=== PATIENT | female | born 1950 ===

== ENCOUNTER 2017-10-01 08:52 | Emergency (ER) | payer MEDICARE, MEDICAID ==
[2017-10-01 08:52] VITALS: BMI 32.8
[2017-10-01 08:58] VITALS: TEMP 98.2
--- NOTE | 2017-10-01 09:42 | ED PDOC ---
Arrival/HPI - General Chief Complaint: Lower Extremity Problem/Injury Time Seen by Provider: 10/01/17 08:53 Historian: EMS EM Caveat: Acuity of Condition - History of Present Illness Narrative History of Present Illness (Text): 67 y/o F w/ h/o HIV, HLD, DM presenting with moderate persistent left leg pain ongoing for the last 5 days. She describes the pain as shooting, sharp and continous originating from the thigh radiating downwards towards the leg. She reports worsening of the pain when lying down and has attempted to self- medicate with Tylenol and Motrin with little resolution in symptoms. She denies any recent trauma or falls. She reports recent visit to [facility] where she was given analgesics and discharged. She denies previous history of similar symptoms. She reports recent change in her HIV medication per her PCP. She reports a recent decrease in urinary stream and maldorous odor, but denies hematuria or dysuria. PCP: Dr. Raymundo Cuadra Time/Duration: Other (5 Days) Quality: Aching (Sharp, stabbing & shooting), Other Severity Level: 10 Context: Sitting Past Medical History - Provider Review Nursing Documentation Reviewed: Yes - Travel History Have you recently traveled outside [place] w/in the past 3 mons?: No - Infectious Disease Hx of Infectious Diseases: None - Reproductive Menopause: Yes - Cardiac Hx Cardiac Disorders: No - Pulmonary Hx Respiratory Disorders: No - Neurological Hx Neurological Disorder: No - HEENT Hx HEENT Disorder: Yes Hx Cataracts: Yes - Renal Hx Renal Disorder: No - Endocrine/Metabolic Hx Endocrine Disorders: Yes Hx Diabetes Mellitus Type 2: Yes - Hematological/Oncological Hx Blood Disorders: Yes Hx Cancer: Yes (breast) - Integumentary Hx Dermatological Disorder: No - Musculoskeletal/Rheumatological Hx Musculoskeletal Disorders: No - Gastrointestinal Hx Gastrointestinal Disorders: No - Genitourinary/Gynecological Hx Genitourinary Disorders: No - Psychiatric Hx Psychophysiologic Disorder: No Hx Substance Use: No - Surgical History Hx Appendectomy: Yes Hx Cholecystectomy: Yes - Anesthesia Hx Anesthesia: Yes Hx Anesthesia Reactions: No Family/Social History - Physician Review Nursing Documentation Reviewed: Yes Family/Social History: No Known Family HX Smoking Status: Never Smoked Hx Alcohol Use: No Hx Substance Use: No Allergies/Home Meds Allergies/Adverse Reactions: Allergies No Known Allergies Allergy (Verified 10/01/17 08:58) Home Medications: Home Meds Medication Instructions Recorded Confirmed Efavirenz/Emtricitabine/Teno 1 tab PO DAILY 09/01/17 09/29/17 [Atripla 600 MG-200 MG-300 MG] Insulin Glargine, Recombina 40 units SQ DAILY 09/01/17 09/29/17 [Lantus] Rosuvastatin Calcium [Crestor] 10 mg PO DAILY 09/01/17 09/29/17 SITagliptin [Januvia] 100 mg PO DAILY 09/01/17 09/29/17 metFORMIN [glucOPHAGE] 500 mg PO BID 09/01/17 09/29/17 Review of Systems - Physician Review All systems were reviewed & negative as marked: Yes - Review of Systems Musculoskeletal: Arthralgias, Myalgias. absent: Neck Pain Physical Exam Vital Signs Reviewed: Yes Vital Signs Temp Pulse Resp BP Pulse Ox 10/01/17 11:58 70 10/01/17 11:54 70 18 136/72 99 10/01/17 11:34 68 17 135/70 98 10/01/17 08:54 98.2 F 72 18 139/68 100 Mental Status: Positive for: Alert and Oriented X 3 - Systems Exam Head: Present: Atraumatic, Normocephalic Pupils: Present: PERRL Extroacular Muscles: Present: EOMI Mouth: Present: Moist Mucous Membranes Neck: Present: Normal Range of Motion. No: MIDLINE TENDERNESS, Paraspinal Tenderness Respiratory/Chest: Present: Clear to Auscultation, Good Air Exchange. No: Respiratory Distress, Accessory Muscle Use Cardiovascular: Present: Regular Rate and Rhythm, Normal S1, S2, Peripheal Pulses Present Abdomen: Present: Normal Bowel Sounds. No: Tenderness, Distention, Peritoneal Signs Back: Present: Pain with Leg Raise. No: Midline Tenderness, Paraspinal Tenderness Lower Extremity: Present: NORMAL PULSES, Tenderness, Neurovascularly Intact. No : Edema, Cyanosis, Swelling Neurological: Present: GCS=15, CN II-XII Intact, Speech Normal, Motor Func Grossly Intact, Normal Sensory Function, Gait Normal Skin: Present: Warm, Dry, Normal Color Psychiatric: Present: Alert, Oriented x 3, Normal Insight, Normal Concentration Medical Decision Making ED Course and Treatment: Impression 67 y/o F presenting w/ 5 day h/o leg pain worrisome for sciatica Give the patient is experiencing shooting pain originating from the gluteal region down the leg most likely neuropathic in nature. She denies recent back injury or injury to the lower extremity or any trauma, making occult fracture or tendinous rupture less likely. Patient will have imaging to rule out fracture of femur and will be treated with analgesics. She most likely will be monitored for any improvement in symptoms and will most likely be referred to neurology on an outpatient basis. Differential includes but is not limited to: Sciatica Patellofemoral syndrome Osteoarthritis Lumbago Plan -XR femur -Toradol -Lidoderm Patch -Tylenol -Ambulation challenge -Frequent reassessments to determine any changes in clinical impression Progress Notes 10:30 XR negative with patient reassessed and reports improvement in symptoms. UA positive for leukocyte esterase & nitrites, however shows few bacteria. She will not be treated for UTI at this time. Patient's niece at the bedside and will assist patient home. Scripts for lidoderm patches provided. Patient ambulatory with minimal assistance. She is stable for discharge. - Lab Interpretations Lab Results: Lab Results 10/01/17 10:12: Urine Color Yellow, Urine Appearance Clear, Urine pH 7.0, Ur Specific [place] 1.015, Urine Protein Negative, Urine Glucose (UA) 500 H, Urine Ketones Trace H, Urine Blood Trace-intact H, Urine Nitrate Positive H, Urine Bilirubin Negative, Urine Urobilinogen 0.2, Ur Leukocyte Esterase Trace H, Urine RBC 2 - 5, Urine WBC 5 - 10, Ur Epithelial Cells 3 - 4, Urine Bacteria Few - RAD Interpretation Radiology Orders: 10/01/17 10:32 Femur Left [FEMUR MIN 2 VIEWS LT] [RAD] Stat - Medication Orders Current Medication Orders: Discontinued Medications Acetaminophen (Tylenol 325mg Tab) 975 mg PO STAT STA Stop: 10/01/17 09:26 Last Admin: 10/01/17 09:46 Dose: 975 mg Ketorolac Tromethamine (Toradol) 60 mg IM STAT STA Stop: 10/01/17 09:26 Last Admin: 10/01/17 09:47 Dose: 60 mg MAR Pain Assessment Document 10/01/17 09:47 SF (Rec: 10/01/17 09:47 SF [id number] Pain Reassessment Is this a pain reassessment? Yes Sleep Is patient sleeping during reassessment? No Presence of Pain Presence of Pain Yes IM Administration Charges Document 10/01/17 09:47 SF (Rec: 10/01/17 09:47 SF [email or web address]) Injection Site MAR Injection Site Left Deltoid Charges for Administration # of IM Administrations 1 Lidocaine (Lidoderm) 1 ea TD DAILY SHERYL Last Admin: 10/01/17 09:46 Dose: 1 ea MAR Transdermal Patch Site Document 10/01/17 09:46 SF (Rec: 10/01/17 09:46 [email or web address] Transdermal Patch Site Transdermal Patch Site Left Lower Back Disposition/Present on Arrival - Present on Arrival Any Indicators Present on Arrival: No History of DVT/PE: No History of Uncontrolled Diabetes: No Urinary Catheter: No History of Decub. Ulcer: No History Surgical Site Infection Following: None - Disposition Have Diagnosis and Disposition been Completed?: Yes Diagnosis: Sciatica, Radicular pain of left lower extremity Disposition: HOME/ ROUTINE Disposition Time: 11:44 Patient Plan: Discharge Condition: IMPROVED Discharge Instructions (ExitCare): Sciatica (DC), Radiculopathy (DC) Additional Instructions: Please follow up with the neurologist Prescriptions: Lidocaine 5% [Lidoderm] 1 ea TD Q12H 5 Days #5 patch Referrals: Raymundo Cuadra MD [Primary Care Provider] - Follow up with primary Maame Roberts MD [Staff Provider] - Follow up with primary [facility] [Outside] - Follow up with primary Forms: [employer] (Bhutanese)
[2017-10-01] MEDS ORDERED: Lidocaine 5% Patch TD SCH (10:00)
[2017-10-01 10:49] LABS: URINE BILIRUBIN NEGATIVE (NEGATIVE); URINE BLOOD TRACE-INTACT (NEGATIVE); URINE GLUCOSE (UA) 500 mg/dL (NEGATIVE); URINE LEUKOCYTE ESTERASE TRACE Leu/uL (NEGATIVE); URINE PROTEIN NEGATIVE mg/dL (<30 mg/dL); URINE UROBILINOGEN 0.2 E.U./dL (<1 E.U./dL)
[2017-10-01 10:51] LABS: URINE APPEARANCE CLEAR (CLEAR); URINE COLOR YELLOW (YELLOW)
[2017-10-01 10:55] LABS: URINE BACTERIA FEW (NEG)
--- NOTE | 2017-10-01 11:30 | RAD ---
Date of service: 10/01/2017 PROCEDURE: Left Femur Radiographs. HISTORY: persistent thigh pain COMPARISON: None. TECHNIQUE: AP and Lateral Radiographs of the left femur. FINDINGS: FEMUR: Normal. No fracture. SOFT TISSUES: Normal. OTHER FINDINGS: None. IMPRESSION: Unremarkable radiographs of the left femur.
[2017-10-01 13:00] VITALS: BP 136/72; PULSE 70; RESP 18; O2SAT 99
== END 2017-10-01 11:58 | disposition home or self-care (01) ==
LOC: ED 08:52
DX: M54.32 Sciatica, left side (principal)
CPT/HCPCS: 73552; 81001; 87086; 87181; 96372; 99285; J1885